=== PATIENT | female | born 1960 | race Caucasian/White ===

== ENCOUNTER 2019-06-17 06:29 | Day surgery (SDC) | payer OTHER ==
--- NOTE | 2019-06-16 14:45 | RAD REPORT ---
EXAM DESCRIPTION: Esther Armas (2 Views)06/16/2019 2:34 pm CLINICAL HISTORY: Preop COMPARISON: 2010 FINDINGS: The lungs appear clear of acute infiltrate. The heart is normal size IMPRESSION: No acute abnormalities displayed
[2019-06-16 15:45] LABS: Absolute Lymphocytes (CBC) 1.6 K/uL (0.7-4.9); Basophils % 0.4 % (0-1.3); Hematocrit 40.1 % (36.0-45.0); Lymphocytes % 24.1 % (15.3-44.8); MPV 8.9 fL (7.6-11.3); RBC Red Blood Cell Count 5.21 M/uL (3.86-4.86)
[2019-06-16 15:56] LABS: Potassium 3.8 mmol/L (3.5-5.1)
--- NOTE | 2019-06-16 16:24 | EKG ---
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
[2019-06-17] MEDS ORDERED: CEFAZOLIN/SWI 1gm 1 GM/10 ML SYR ONE (07:13)
[2019-06-17] MEDS ORDERED: NA CHLORIDE 0.9% 1,000 ML ONE (07:13)
[2019-06-17] MEDS ORDERED: propofoL 200 MG/20 ML VIAL IV ONE (07:18)
[2019-06-17] MEDS ORDERED: MIDAZOLAM HCL 2 MG/2 ML INJ ONE (07:18)
[2019-06-17] MEDS ORDERED: FENTANYL CITR 100 MCG/2 ML ONE (07:18)
[2019-06-17] MEDS ORDERED: LIDOCAINE 2% MPF 5 ML VIAL ONE (07:18)
[2019-06-17] MEDS ORDERED: NA CIT/CITRIC AC 30 ML ORAL UDC ONE (07:25)
[2019-06-17] MEDS ORDERED: NA CIT/CITRIC AC 30 ML ORAL UDC PO ONE (07:30)
[2019-06-17] MEDS ORDERED: FAMOTIDINE 20 MG/2 ML VIAL IV ONE (07:34)
[2019-06-17] MEDS ORDERED: COLLAGENASE 30 GM OINTMENT TOP ONE (07:34)
[2019-06-17] MEDS ORDERED: ONDANSETRON 4 MG/2 ML VIAL ONE (07:35)
[2019-06-17] MEDS ORDERED: BUPIVACAINE 0.25% PF 10 ML VIAL ONE (07:35)
--- NOTE | 2019-06-17 08:42 | RAD REPORT ---
EXAM DESCRIPTION: RAD - Hand Right 2 View - 06/17/2019 8:24 am CLINICAL HISTORY: F/B REMOVAL IN OR1 COMPARISON: No comparisons FINDINGS: Fluoroscopy time 1.4 seconds.
[2019-06-17 10:57] VITALS: BP 123/53; TEMP 97.2; O2SAT 100
--- NOTE | 2019-06-17 20:21 | OP ---
Date of Procedure: 06/17/2019 Surgeon: Kulwant Choudhury MD Preoperative Diagnosis: Right thumb subungual abscess, rule out foreign body. Postoperative Diagnosis: Right thumb subungual abscess, rule out foreign body. Procedure: Exploration, incision, debridement, and drainage of right thumb subungual abscess and use of fluoroscopy. Estimated Blood Loss: Minimal. Specimen: Pus and debris. Findings: As above. Anesthesia: General. Complications: None. Anesthesia: MAC. Complications: None. Disposition: Patient tolerated the procedure in stable condition, taken to Recovery in good general condition. Procedure In Detail: Patient was brought to the OR and placed in supine position. MAC anesthesia be gun. Patient was prepped and draped in usual sterile fashion. Digital block was performed by Anesth esia. She was still a little sensitive. Marcaine 0.5% was infiltrated. Fluoroscopy was performed a nd no obvious foreign body was seen. Subsequently, the subungual space was explored by first cutting the part of the nail all the way down to the nailbed in a rectangular fashion about the middle third of it down to where the nailbed was. There was a lot of pus, which was cultured and evacuated. The re was some debris there, which was cleaned with a curette. Wound was irrigated. Bleeding controlle d with cautery. No obvious foreign body was seen any further. The wound was irrigated again. Bleed ing was controlled and then sterile dressing was applied. Patient was awakened, taken to Recovery in good general condition. Discharge Note: Patient will go to Day-Surgery, then home when stable. Disposition: Home. Condition: Stable. Discharge Instructions: Resume home medications and diet and activity as tolerated. No heavy liftin g. Remove outer dressing in 2 days. Soak in some peroxide and Neosporin to wound daily. Keep the h and elevated. Tylenol No. 3 one tablet p.o. q.4 p.r.n. pain and patient already has antibiotics per Dr. Galindo. /YOMIL Voice ID: [id number] Report ID: [id number]
== END 2019-06-17 10:05 | disposition home or self-care (01) ==
LOC: OR 06:29
PROVIDERS: ATTEND Surgery
PROC: 0H9QXZZ Drainage of Finger Nail, External Approach (ICD-10-PCS; principal; 2019-06-17 08:30)
DX: L03.011 Cellulitis of right finger (principal); K21.9 Gastro-esophageal reflux disease without esophagitis; E07.9 Disorder of thyroid, unspecified; Z91.048 Other nonmedicinal substance allergy status
CPT/HCPCS: 93005; 87070; 85025; 80048; 36415; 87205; 82947; 87075; 87077; 87186; 71046; 73120; 26010; J2704; J2250; J3010; J0690; J7030; J2405; J3590